=== PATIENT | male | born 1950 | race Caucasian/White ===

== ENCOUNTER 2019-11-14 12:57 | Inpatient (IN) | payer OTHER, SELFPAY ==
[2019-11-14 13:04] VITALS: BP 147/85; PULSE 63; RESP 18; TEMP 36.4; O2SAT 95; BMI 30.1
--- NOTE | 2019-11-14 13:16 | USCV_ITS ---
AnicetoLawrence cobb Age: 69 Gender: M : 1950 Exam Date: 11/14/2019 13:35 Ordering Phys: Hansa Goodrich Technologist: Marleni Duran Exam Location: [facility] [place] Indication: RED, SWOLLEN HISTORY: Lower extremity edema. Prior diagnosis of thrombis two weeks ago at [facility] PROCEDURES: Venous duplex imaging was performed in only the right lower extremity. The following venous structures were evaluated: common femoral vein, profunda vein, proximal portion of the greater saphenous vein, superficial femoral vein, and the popliteal vein. In addition, the posterior tibial and peroneal trunk were evaluated. Serial compression, augmentation maneuvers, and spectral Doppler flow evaluation were performed. FINDINGS: Acute thrombus within the CFV, Profunda, and Femoral vein. Normal popliteal vein. CONCLUSIONS There is evidence of acute right lower extremity deep venous thrombosis. Dr. Alesia Shen DO (Electronically Signed) Final Date: 14 November 2019 16:02 S
--- NOTE | 2019-11-14 13:18 | ED_ITS ---
Documented by User: RONEL Lew 11/14/19 15:11 HPI - Extremity Problem General: Chief complaint: Skin/Abscess/Foreign Body Stated complaint: R LEG SWELLING Time Seen by Provider: 11/14/19 13:05 Source: patient and family Mode of arrival: ambulatory Limitations: no limitations History of Present Illness: HPI Narrative: Patient is a very nice 69-year-old male who presents to ED today along with his for complaints of right lower extremity swelling and redness. Patient tells me he initially began noticing swelling in the extremity approximately 2 weeks ago and was seen by the [facility] and diagnosed with a DVT (US report from [facility] actually shows this was 2 months ago-not 2 weeks ago). He was placed on Eliquis at that time. Patient states dakota roximately a week later he began noticing redness and warmth to the leg. He again was seen at the [facility] on Thursday and diagnosed with cellulitis. He was given a dose of IV Rocephin and placed on oral doxycycline. Patient states since that visit leg has continued to worsen and he has noticed redness now above his knee. He has not been running fevers. He does not complain of chest pain or shortness of breath. He states his right leg is weeping fluid. MD Complaint: extremity pain and extremity swelling Onset (ago): day(s) Pain Consistency: constant Location: right and lower extremity Radiation: none Relieving factors: nothing Exacerbating factors: nothing Associated symptoms: Reports no associated symptoms; Deny chest pain or fever(s) Context: history of DVT Review of Systems Const: Denies: fever(s), chills, fatigue or malaise Eyes: Denies: change in vision, blurry vision, floaters or seeing flashes Card: Denies: chest pain, palpitations, edema, lightheadedness, syncope, pre- syncope, dyspnea on exertion or orthopnea Resp: Denies: dyspnea, productive cough, non-productive cough or chest congestion GI: Denies: nausea or vomiting : Denies: flank pain Musc: Reports: extremity pain and extremity swelling; Denies: neck pain or back pain Skin/Breast: Reports: other (redness and weeping to R LE) Neuro: Denies: numbness in extremities, weakness in extremities or sensory changes PFSH ED PFSH: Social History Smoking and tobacco status: former smoker Physical Exam Const: COMMON NORMALS: no acute distress, average body habitus, patient oriented x3, no limitations, healthy appearing, alert and well nourished ORIENTATION/CONSCIOUSNESS: Yes oriented to person, Yes oriented to place and Yes oriented to time Resp: COMMON NORMALS: normal respiratory effort and clear to auscultation bilaterally AUSCULTATION: clear to auscultation bilaterally Cardio: COMMON NORMALS: regular rate and regular rhythm RATE: regular rate RHYTHM: regular rhythm Extremity: OTHER: pt has significant erythema and pitting edema to R LE; findings are circumferential; he does have some fainter erythema just proximal to his knee that he states is new despite abx use; he has weeping of clear/yellow fluid to anterior aspect of lower leg; R foot with dusky hue appearance-he does have similar findings to L LE as well; DP/PT pulses are intact and there is no coolness to the foot Neuro: COMMON NORMALS: patient oriented x3, moves all extremities, no focal motor deficits, no sensory deficits noted and gait normal SENSORIUM/ORIENTATION: Yes alert, Yes oriented to person, Yes oriented to place and Yes oriented to time Skin: OTHER: see extremity assessment Course Vital Signs: Vital signs: Vital Signs Temperature 97.6 F 11/14/19 13:04 Pulse Rate 63 11/14/19 13:04 Respiratory Rate 18 11/14/19 13:04 Blood Pressure 147/85 11/14/19 13:04 Pulse Oximetry 95 11/14/19 13:04 MDM - Extremity (Nontraumatic) MDM Narrative: Medical decision making narrative: [facility] and has been on doxycycline for the past 48 hours and according to patient the erythema is continuing to spread proximally. His vitals and labs overall look okay but he has failed outpatient therapy. Spoke to Dr. Strickland about admitting the patient for aggressive IV antibiotics. Venous ultrasound was obtained here and does show a DVT to his right common [facility] was in same location. He has been given IV vancomycin here. Lab Data: Labs: Lab Results 11/14/19 11/14/19 11/14/19 Range/Units 13:30 13:30 13:30 WBC 5.9 (4.0-10.0) 10^3/ uL RBC 4.58 (4.1-5.3) 10^6/u L Hgb 14.8 (11.7-16.6) g/dL Hct 43.3 (42.0-52.0) % MCV 94.5 H (80-94) fL MCH 32.3 (28.0-34.0) pg MCHC 34.2 (30.0-36.0) g/dL RDW 11.9 L (12.1-15.1) % Plt Count 225 (130-400) 10^3/c mm MPV 9.1 (7.4-10.4) fL Neut % (Auto) 51.9 % Lymph % (Auto) 19.3 % Lyon % (Auto) 10.7 % Eos % (Auto) 16.0 % Baso % (Auto) 1.2 % Neut # (Auto) 3.1 (1.8-7.7) 10^3/u L Lymph # (Auto) 1.1 (0.8-4.8) 10^3/u L Lyon # (Auto) 0.6 (0.2-0.9) 10^3/u L Eos # (Auto) 0.9 H (0.0-0.8) 10^3/u L Baso # (Auto) 0.1 (0.0-0.1) 10^3/u L Nucleated RBC % (a uto) 0 % Nucleated RBCs # 0.0 /100WBC PT (10.5-13.3) SECO NDS INR (0.8-1.2) APTT (23.9-36.7) SECO NDS Sodium 136 (136-145) mmol/L Potassium 4.0 (3.5-5.1) mmol/L Chloride 97 L (98-107) mmol/L Carbon Dioxide 26 (22-29) mmol/L Anion Gap 17.0 (5-19) BUN 20 (8-23) mg/dL Creatinine 1.3 H (0.7-1.2) mg/dL GFR Calculation 54.6 L (90-130) mL/min Glucose 242 H (65-115) mg/dL Calculated Osmolal ity 287 (285-295) mOsm/k g Lactate 1.7 (0.5-2.2) mmol/L Calcium 9.4 (8.5-10.5) mg/dL Total Bilirubin 0.3 (0.15-1.2) mg/dL AST 22 (0-40) U/L ALT 17 (0-41) U/L Alkaline Phosphata se 85 (40-130) IU/L C-Reactive Protein 7.5 H (0.0-4.9) mg/L Total Protein 6.9 (6.6-8.7) g/dL Albumin 4.2 (3.5-5.2) g/dL Globulin 2.7 (1.3-4.6) g/dL 11/14/19 Range/Units 13:30 WBC (4.0-10.0) 10^3/ uL RBC (4.1-5.3) 10^6/u L Hgb (11.7-16.6) g/dL Hct (42.0-52.0) % MCV (80-94) fL MCH (28.0-34.0) pg MCHC (30.0-36.0) g/dL RDW (12.1-15.1) % Plt Count (130-400) 10^3/c mm MPV (7.4-10.4) fL Neut % (Auto) % Lymph % (Auto) % Lyon % (Auto) % Eos % (Auto) % Baso % (Auto) % Neut # (Auto) (1.8-7.7) 10^3/u L Lymph # (Auto) (0.8-4.8) 10^3/u L Lyon # (Auto) (0.2-0.9) 10^3/u L Eos # (Auto) (0.0-0.8) 10^3/u L Baso # (Auto) (0.0-0.1) 10^3/u L Nucleated RBC % (a uto) % Nucleated RBCs # /100WBC PT 14.50 H (10.5-13.3) SECO NDS INR 1.09 (0.8-1.2) APTT 28.1 (23.9-36.7) SECO NDS Sodium (136-145) mmol/L Potassium (3.5-5.1) mmol/L Chloride (98-107) mmol/L Carbon Dioxide (22-29) mmol/L Anion Gap (5-19) BUN (8-23) mg/dL Creatinine (0.7-1.2) mg/dL GFR Calculation (90-130) mL/min Glucose (65-115) mg/dL Calculated Osmolal ity (285-295) mOsm/k g Lactate (0.5-2.2) mmol/L Calcium (8.5-10.5) mg/dL Total Bilirubin (0.15-1.2) mg/dL AST (0-40) U/L ALT (0-41) U/L Alkaline Phosphata se (40-130) IU/L C-Reactive Protein (0.0-4.9) mg/L Total Protein (6.6-8.7) g/dL Albumin (3.5-5.2) g/dL Globulin (1.3-4.6) g/dL Imaging Data^: US venous R LE: My impression: Per Sandie US tech-DVT noted to right common femoral vein; arterial blood flow was noted throughout the extremity Discharge Plan Discharge Patient Disposition: Admitted As Inpatient Clinical Impression: Cellulitis of right leg without foot, Failure of outpatient treatment Deep vein thrombosis (DVT) of right lower extremity Qualifiers: Affected thrombotic vein of extremity: femoral Chronicity: acute Qualified Code(s): I82.411 - Acute embolism and thrombosis of right femoral vein Condition: Stable Sign Out Sign Out Data: Patient Sign Out occurred on 11/14/19 at 14:40. Patient's care was discussed, and care was transferred from to Alice Strickland. Coding Level of Care Code ED Parking Manager for Chg Fwd Exam Expanded Problem Focused Documented by User: Alice Strickland 11/14/19 15:02 HPI - Extremity Problem General: Chief complaint: Skin/Abscess/Foreign Body Stated complaint: R LEG SWELLING Time Seen by Provider: 11/14/19 13:05 PFSH ED PFSH: Social History Smoking and tobacco status: former smoker Course Vital Signs: Vital signs: Vital Signs Temperature 97.6 F 11/14/19 13:04 Pulse Rate 63 11/14/19 13:04 Respiratory Rate 18 11/14/19 13:04 Blood Pressure 147/85 11/14/19 13:04 Pulse Oximetry 95 11/14/19 13:04 MDM - Extremity (Nontraumatic) MDM Narrative: Medical decision making narrative: Patient was seen and examined by me. I agree with Hansa Goodrich PAs assessment and plan. The case was reviewed with Dr. Najera. She agrees to admit for IV antibiotics as the patient is possibly failed outpatient treatment. Nonetheless his symptoms are getting worse and with his much area of his leg involved he will need further inpatient care. Lab Data: Labs: Lab Results 11/14/19 11/14/19 11/14/19 Range/Units 13:30 13:30 13:30 WBC 5.9 (4.0-10.0) 10^3/ uL RBC 4.58 (4.1-5.3) 10^6/u L Hgb 14.8 (11.7-16.6) g/dL Hct 43.3 (42.0-52.0) % MCV 94.5 H (80-94) fL MCH 32.3 (28.0-34.0) pg MCHC 34.2 (30.0-36.0) g/dL RDW 11.9 L (12.1-15.1) % Plt Count 225 (130-400) 10^3/c mm MPV 9.1 (7.4-10.4) fL Neut % (Auto) 51.9 % Lymph % (Auto) 19.3 % Lyon % (Auto) 10.7 % Eos % (Auto) 16.0 % Baso % (Auto) 1.2 % Neut # (Auto) 3.1 (1.8-7.7) 10^3/u L Lymph # (Auto) 1.1 (0.8-4.8) 10^3/u L Lyon # (Auto) 0.6 (0.2-0.9) 10^3/u L Eos # (Auto) 0.9 H (0.0-0.8) 10^3/u L Baso # (Auto) 0.1 (0.0-0.1) 10^3/u L Nucleated RBC % (a uto) 0 % Nucleated RBCs # 0.0 /100WBC PT (10.5-13.3) SECO NDS INR (0.8-1.2) APTT (23.9-36.7) SECO NDS Sodium 136 (136-145) mmol/L Potassium 4.0 (3.5-5.1) mmol/L Chloride 97 L (98-107) mmol/L Carbon Dioxide 26 (22-29) mmol/L Anion Gap 17.0 (5-19) BUN 20 (8-23) mg/dL Creatinine 1.3 H (0.7-1.2) mg/dL GFR Calculation 54.6 L (90-130) mL/min Glucose 242 H (65-115) mg/dL Calculated Osmolal ity 287 (285-295) mOsm/k g Lactate 1.7 (0.5-2.2) mmol/L Calcium 9.4 (8.5-10.5) mg/dL Total Bilirubin 0.3 (0.15-1.2) mg/dL AST 22 (0-40) U/L ALT 17 (0-41) U/L Alkaline Phosphata se 85 (40-130) IU/L C-Reactive Protein 7.5 H (0.0-4.9) mg/L Total Protein 6.9 (6.6-8.7) g/dL Albumin 4.2 (3.5-5.2) g/dL Globulin 2.7 (1.3-4.6) g/dL 11/14/19 Range/Units 13:30 WBC (4.0-10.0) 10^3/ uL RBC (4.1-5.3) 10^6/u L Hgb (11.7-16.6) g/dL Hct (42.0-52.0) % MCV (80-94) fL MCH (28.0-34.0) pg MCHC (30.0-36.0) g/dL RDW (12.1-15.1) % Plt Count (130-400) 10^3/c mm MPV (7.4-10.4) fL Neut % (Auto) % Lymph % (Auto) % Lyon % (Auto) % Eos % (Auto) % Baso % (Auto) % Neut # (Auto) (1.8-7.7) 10^3/u L Lymph # (Auto) (0.8-4.8) 10^3/u L Lyon # (Auto) (0.2-0.9) 10^3/u L Eos # (Auto) (0.0-0.8) 10^3/u L Baso # (Auto) (0.0-0.1) 10^3/u L Nucleated RBC % (a uto) % Nucleated RBCs # /100WBC PT 14.50 H (10.5-13.3) SECO NDS INR 1.09 (0.8-1.2) APTT 28.1 (23.9-36.7) SECO NDS Sodium (136-145) mmol/L Potassium (3.5-5.1) mmol/L Chloride (98-107) mmol/L Carbon Dioxide (22-29) mmol/L Anion Gap (5-19) BUN (8-23) mg/dL Creatinine (0.7-1.2) mg/dL GFR Calculation (90-130) mL/min Glucose (65-115) mg/dL Calculated Osmolal ity (285-295) mOsm/k g Lactate (0.5-2.2) mmol/L Calcium (8.5-10.5) mg/dL Total Bilirubin (0.15-1.2) mg/dL AST (0-40) U/L ALT (0-41) U/L Alkaline Phosphata se (40-130) IU/L C-Reactive Protein (0.0-4.9) mg/L Total Protein (6.6-8.7) g/dL Albumin (3.5-5.2) g/dL Globulin (1.3-4.6) g/dL Discharge Plan Discharge Patient Disposition: Admitted As Inpatient Clinical Impression: Cellulitis of right leg without foot, Failure of outpatient treatment Deep vein thrombosis (DVT) of right lower extremity Qualifiers: Affected thrombotic vein of extremity: femoral Chronicity: acute Qualified Code(s): I82.411 - Acute embolism and thrombosis of right femoral vein Condition: Stable Sign Out Sign Out Data: Patient Sign Out occurred on 11/14/19 at 14:40. Patient's care was discussed, and care was transferred from to [facility] ([place], [place]). Coding Level of Care Code ED Parking Manager for Chg Fwd Exam Expanded Problem Focused
[2019-11-14 13:38] LABS: Basophils # 0.1 10^3/uL (0.0-0.1); Basophils % 1.2 %; Eosinophils # 0.9 10^3/uL (0.0-0.8); Hematocrit 43.3 % (42.0-52.0); Hemoglobin 14.8 g/dL (11.7-16.6); Lymphocytes # 1.1 10^3/uL (0.8-4.8); Lymphocytes % 19.3 %; Mean Corpuscular HGB Conc 34.2 g/dL (30.0-36.0); Mean Corpuscular Hemoglobin 32.3 pg (28.0-34.0); Mean Corpuscular Volume 94.5 fL (80-94); Mean Platelet Volume 9.1 fL (7.4-10.4); Monocytes # 0.6 10^3/uL (0.2-0.9); Monocytes % 10.7 %; Neutrophils # 3.1 10^3/uL (1.8-7.7); Neutrophils % 51.9 %; Nucleated Red Blood Cells % 0 %; Platelet Count 225 10^3/cmm (130-400); Red Blood Count 4.58 10^6/uL (4.1-5.3); Red Cell Distribution Width 11.9 % (12.1-15.1); White Blood Count 5.9 10^3/uL (4.0-10.0)
[2019-11-14 13:49] LABS: INR 1.09 (0.8-1.2)
[2019-11-14 13:50] LABS: Partial Thromboplastin Time 28.1 SECONDS (23.9-36.7)
[2019-11-14] MEDS: vancomycin 1,000 MG in sodium chloride 0.9% 250 ML 250 MG IV (13:54)
[2019-11-14 13:55] LABS: Alanine Aminotransferase 17 U/L (0-41); Albumin Level 4.2 g/dL (3.5-5.2); Alkaline Phosphatase 85 IU/L (40-130); Aspartate Amino Transferase 22 U/L (0-40); Blood Urea Nitrogen 20 mg/dL (8-23); C Reactive Protein 7.5 mg/L (0.0-4.9); Calcium 9.4 mg/dL (8.5-10.5); Carbon Dioxide 26 mmol/L (22-29); Chloride 97 mmol/L (98-107); Globulin 2.7 g/dL (1.3-4.6); Glomerular Filtration Rate 54.6 mL/min (90-130); Glucose 242 mg/dL (65-115); Osmolality Calculated 287 mOsm/kg (285-295); Sodium 136 mmol/L (136-145); Total Bilirubin 0.3 mg/dL (0.15-1.2); Total Protein 6.9 g/dL (6.6-8.7)
[2019-11-14 13:56] LABS: Lactate (Lactic Acid level) 1.7 mmol/L (0.5-2.2)
--- NOTE | 2019-11-14 15:03 | PC.NURSE ---
Patient reports his head around his hairline and a small patch on his chest have started itching in the last 5 minutes of his Vancomycin infusion. Very slight pink coloration noted, no rash or lesions noted. Doctor notified. Advised to hold zosyn infusion for a little longer.
[2019-11-14] MEDS: piperacillin-tazobactam 3.375 GM in sodium chloride 0.9% (plus) 50 ML IV ×2 (15:19→23:41)
[2019-11-14 15:22] VITALS: BP 133/77; PULSE 57; RESP 14; O2SAT 95
[2019-11-14 15:43] VITALS: BP 133/77; PULSE 63; RESP 16; TEMP 36.4; O2SAT 96
[2019-11-14 16:20] VITALS: BP 162/86; PULSE 58; RESP 16; TEMP 36.5; O2SAT 97
[2019-11-14] MEDS: sodium chloride 0.9% 1,000 ML 75 ML IV (17:21)
--- NOTE | 2019-11-14 18:05 | PM.HP ---
Providers/Chief Complaint Admitting Physician: Crista Mosquera MD Primary Care Provider: [facility] at [facility] [place] although sees Anuradha Martell locally Chief Complaint: R LEG SWELLING History of Present Illness Lawrence Moreland is a 69 year old male who presented to the emergency room with chief complaint of swelling, redness and pain in his right lower extremity. He was diagnosed with a DVT in his right lower extremity sometime ago. He has been treated with Eliquis. About 2-1/2 weeks ago, he started noticing increasing pain in his right lower extremity as well as oozing of some serous type fluid. Leg is become progressively more red. He was seen at [facility] over the weekend and received some Rocephin as well as a prescription for doxycycline. His leg is progressively worsened since that time and extended to above the knee. He has a defined area of erythema almost circumferentially with superficial ulcerations of the skin. This redness is not the same as what he had when he was found to have a DVT. He does admit to scratching the leg at times. Denies any other form of injury. Did not have any preceding recent surgery, no known history of cancer, no prior history of DVT. He does report that he had vein grafting from the right lower extremity at the time of his bypass surgery and [facility] a few years back. Denies having chronic swelling in the legs since that time. Repeat ultrasound today with duplex showed common femoral vein DVT only. It is described in report obtained from the [facility] to have been extending to the peroneal when last checked. No history of diabetes. No similar episodes of cellulitis before. In the emergency room he received a dose of vancomycin as well as some Zosyn. Given failure of outpatient treatment and progressive worsening despite treatment he is being admitted for further care and evaluation as indicated. No known history of arterial disease in the leg. Review of Systems Const: Denies: fever(s), chills or change in appetite Eyes: Denies: change in vision ENMT: Denies: throat pain, dry mouth or nasal congestion Card: Denies: chest pain or palpitations Resp: Denies: dyspnea, productive cough or non-productive cough GI: Denies: abdominal pain, nausea, vomiting, diarrhea or constipation : Denies: difficulty urinating Musc: Reports: extremity pain and extremity swelling Skin/Breast: Reports: rash, pruritus, erythema, skin tenderness, sores and other (Oozing of serous fluid) Neuro: Denies: headache(s), numbness in extremities, weakness in extremities or dizziness Psych: Denies: anxiety or depression Nuno/Lymph: Denies: easy bruising or easy bleeding Medications/Allergies Home Medications Medication Instructions Recorded Confirmed Last Taken Type apixaban [Eliquis] 5 mg PO BID 11/14/19 11/14/19 11/14/19 History ceftriaxone 1 g IV DAILY 11/14/19 11/14/19 11/13/19 History doxycycline hyclate 100 mg PO BID 11/14/19 11/14/19 11/14/19 History omeprazole 20 mg PO BID 11/14/19 11/14/19 11/14/19 History rosuvastatin [Crestor] 20 mg PO DAILY 11/14/19 11/14/19 11/13/19 History tamsulosin 0.4 mg PO DAILY 11/14/19 11/14/19 11/14/19 History Allergies Allergy/AdvReac Type Severity Reaction Status Date / Time No Known Allergies Allergy Verified 11/14/19 13:16 PFSH Acute PFSH: Medical History (Updated 11/14/19 @ 22:34 by Crista Mosquera MD) BPH (benign prostatic hyperplasia) CAD (coronary artery disease) Deep vein thrombosis (DVT) of right lower extremity GERD (gastroesophageal reflux disease) Hypercholesteremia Hypertension Surgical History History of coronary artery bypass graft 2 vessels, done at [place] Family History Other CAD (coronary artery disease) Denies family history of Clotting disorder Bleeding disorder Social History Smoking and tobacco status: former smoker Marital status: Vitals/I&O/Wt Last Vital Signs Temp 97.7 F 11/14/19 16:20 Pulse 58 L 11/14/19 16:20 Resp 16 11/14/19 16:20 BP 162/86 11/14/19 16:20 Pulse Ox 97 11/14/19 16:20 11/14/19 11/14/19 11/14/19 06:59 14:59 22:59 Intake Total 250 / 250 Balance 250 / 250 Weight last 48 hrs Weight 92.533 kg Physical Exam Const: OTHER: Alert, oriented x3, cooperative HENMT: OTHER: Normocephalic atraumatic, moist mucus membranes Eye: OTHER: Pupils equally round and reactive to light, extraocular movements intact Neck/C-Spine: OTHER: Supple, no thyromegaly or lymphadenopathy Resp: OTHER: Clear to auscultation bilaterally, no rales, rhonchi or wheezes noted, no accessory muscle use noted Cardio: OTHER: Regular rate and rhythm, no murmurs gallops or rubs. Brisk capillary refill noted at both great toes GI: OTHER: Abdomen soft, nontender, nondistended with positive bowel sounds : OTHER: Deferred Extremity: NARRATIVE EXTREMITY EXAM: Patient with marked edema in the right lower extremity compared to the left lower extremity. Area of erythema and edema is marked. All toes are puffy. Neuro: OTHER: Face symmetric, speech clear, moves all extremities Psych: OTHER: Normal affect Skin: OTHER: Chronic hyperpigmentation, stasis changes noted to the left lower extremity. Patient's right lower extremity is so erythematous difficult to discern if present there as well but suspect so. He has multiple scratches and abrasions of superficial layer of skin with oozing and crusting. Some of these are around his shoe top and others extend up the steward. No purulent drainage is noted. Some areas of the skin have very small vesicles. No areas of necrosis noted. Skin is warm to touch but not particularly raised. Data : 11/14/19 13:30 11/14/19 13:30 Micro: Microbiology 11/14/19 13:25 Blood Culture - Preliminary Blood SPECIMEN COLLECTED 11/14/19 13:30 Blood Culture - Preliminary Blood SPECIMEN COLLECTED A&P Assessment and plan (1) Cellulitis of right leg without foot: Extends from ankle to above the knee Status: Acute (2) Failure of outpatient treatment: Status: Acute (3) Deep vein thrombosis (DVT) of right lower extremity: On Eliquis, recent diagnosis Status: Acute Qualifiers: Affected thrombotic vein of extremity: femoral Chronicity: acute Qualified Code(s): I82.411 - Acute embolism and thrombosis of right femoral vein (4) Hyperglycemia: Without a known diagnosis of diabetes Status: Acute (5) CAD (coronary artery disease): History of bypass surgery several years ago Status: Acute Qualifiers: Coronary Disease-Associated Artery/Lesion type: bypass graft [place] vs. transplanted heart: [place] heart Associated angina: without angina Qualified Code(s): I25.810 - Atherosclerosis of coronary artery bypass graft(s) without angina pectoris (6) Hypercholesteremia: Chronically on statin Status: Acute (7) Hypertension: Does not appear to be on any treatment presently Status: Acute Qualifiers: Hypertension type: essential hypertension Qualified Code(s): I10 - Essential (primary) hypertension (8) BPH (benign prostatic hyperplasia): Chronically on Flomax Status: Acute Qualifiers: Lower urinary tract symptom presence: symptoms absent Qualified Code(s): N40.0 - Benign prostatic hyperplasia without lower urinary tract symptoms (9) GERD (gastroesophageal reflux disease): Status: Acute Qualifiers: Esophagitis presence: esophagitis presence not specified Qualified Code(s): K21.9 - Gastro-esophageal reflux disease without esophagitis Additional A&P Information Acute kidney injury versus chronic kidney disease Inpatient admission Continue vancomycin and Zosyn Check hemoglobin A1c Keep lower extremity elevated 1 dose of IV diuresis If does not have gross improvement overnight will consider arterial Dopplers tomorrow Echocardiogram limited to check ejection fraction Check hemoglobin A1c Sliding scale insulin For somebody with history of bypass surgery, not on much in the way of chronic home medications. Will need to [facility] and clarify a bit further along with discussing with him more in-depth. In their interim we will continue statin therapy Continue Flomax Continue chronic PPI Allison provides DVT treatment and prophylaxis Supportive care otherwise Plans discussed with patient and he was given an opportunity to ask questions Full code Attestations Medical Necessity Statement*: Anticipate stay greater than 2 midnights in patient failing outpatient attempts at management of cellulitis. Has significant hyperglycemia without known history of diabetes and other comorbid diagnoses as noted. Plans as indicated. Coding Level of Care Code Acute Dry Cans Operator for Akhil Rush Diagnoses Cellulitis of right leg without foot L03.115 Failure of outpatient treatment Z78.9 Deep vein thrombosis (DVT) of right lower extremity I82.411 Affected thrombotic vein of extremity: femoral Chronicity: acute Hyperglycemia R73.9 CAD (coronary artery disease) I25.810 Coronary Disease-Associated Artery/Lesion type: bypass graft [place] vs. transplanted heart: [place] heart Associated angina: without angina Hypercholesteremia E78.00 Hypertension I10 Hypertension type: essential hypertension BPH (benign prostatic hyperplasia) N40.0 Lower urinary tract symptom presence: symptoms absent GERD (gastroesophageal reflux disease) K21.9 Esophagitis presence: esophagitis presence not specified
[2019-11-14] MEDS: calcium carbonate 500 mg Chew Tablet 1000 MG PO ×2 (18:37→23:43)
[2019-11-14 19:18] VITALS: BP 146/76; PULSE 61; RESP 18; TEMP 36.7; O2SAT 98
[2019-11-14] MEDS: apixaban 5 mg Tablet PO (21:01)
[2019-11-15] VITALS: BP 135/76; PULSE 71; RESP 18; TEMP 36.8; O2SAT 93
[2019-11-15 04:00] VITALS: BP 126/63; PULSE 72; RESP 18; TEMP 36.7; O2SAT 97
[2019-11-15 06:00] LABS: Basophils # 0.1 10^3/uL (0.0-0.1); Eosinophils % 15.8 %; Hematocrit 41.5 % (42.0-52.0); Lymphocytes # 1.1 10^3/uL (0.8-4.8); Lymphocytes % 18.1 %; Mean Corpuscular HGB Conc 33.7 g/dL (30.0-36.0); Mean Corpuscular Hemoglobin 31.7 pg (28.0-34.0); Mean Corpuscular Volume 93.9 fL (80-94); Mean Platelet Volume 9.5 fL (7.4-10.4); Monocytes # 0.7 10^3/uL (0.2-0.9); Neutrophils # 3.2 10^3/uL (1.8-7.7); Neutrophils % 52.9 %; Nucleated Red Blood Cells % 0 %; Platelet Count 200 10^3/cmm (130-400); Red Blood Count 4.42 10^6/uL (4.1-5.3); Red Cell Distribution Width 11.7 % (12.1-15.1); White Blood Count 6.1 10^3/uL (4.0-10.0)
[2019-11-15] MEDS: FUROsemide 10 mg/mL SDV 4mL 40 MG IVP (06:17)
[2019-11-15] MEDS: sodium chloride 0.9% 1,000 ML 75 ML IV ×2 (06:17→19:09)
[2019-11-15 06:23] LABS: Phosphorus 2.8 mg/dL (2.5-4.5)
[2019-11-15 06:24] LABS: NT Pro B Type Natriuretic Pept 533 pg/mL (0-125)
[2019-11-15 06:27] LABS: Estmated Average Glucose 140; Hemoglobin A1C 6.5 % (4.0-6.0)
[2019-11-15 06:29] LABS: Anion Gap 12.9 (5-19); Blood Urea Nitrogen 19 mg/dL (8-23); Calcium 9.7 mg/dL (8.5-10.5); Carbon Dioxide 27 mmol/L (22-29); Chloride 103 mmol/L (98-107); Glomerular Filtration Rate 73.9 mL/min (90-130); Glucose 105 mg/dL (65-115); Osmolality Calculated 285 mOsm/kg (285-295); Potassium 3.9 mmol/L (3.5-5.1); Sodium 139 mmol/L (136-145)
[2019-11-15 06:32] LABS: Glucose Point of Care 102 mg/dL (70-110)
[2019-11-15 06:39] LABS: Add Urine Microscopic? NO
[2019-11-15 07:06] LABS: Bilirubin Urine Neg (NEGATIVE); Blood Urine Neg (Negative); Glucose Urine UA Norm (Normal); Ketones Urine Negative (Negative); Leukocyte Esterase Urine Negative (Negative); Nitrate Urine Negative (Negative); Protein Urine Neg (Negative); Specific Gravity, Urine 1.015 (1.005-1.030); Urine Appearance Clear (CLEAR); Urine Color Yellow (Yellow); Urobilinogen Urine Norm (Negative); pH Urine 7 (5-7)
[2019-11-15 08:00] VITALS: BP 110/64; PULSE 70; RESP 19; TEMP 36.8; O2SAT 96
[2019-11-15] MEDS: tamsulosin 0.4 mg Capsule PO (08:18)
[2019-11-15] MEDS: atorvastatin 40 mg Tablet 80 MG PO (08:18)
[2019-11-15] MEDS: pantoprazole DR 40 mg Tablet PO ×2 (08:18→18:14)
[2019-11-15] MEDS: lactobacillus 1 Tablet 1 TAB PO ×2 (08:19→18:14)
[2019-11-15] MEDS: apixaban 5 mg Tablet PO ×2 (08:19→18:14)
--- NOTE | 2019-11-15 09:16 | PM.PN ---
Subjective Subjective: Interval history: Patient with less oozing today. No real change in area of erythema. When he is lying down in bed he feels okay but when walking around describes pain up his tibia. Further discussion reveals that his swelling has really just 2 weeks ago when it started. He relays this because that is when he started not being able to wear his boot. He does report that he has a brother who with a history of a blood clot. Reviewed with him the finding of elevated hemoglobin A1c likely contributing factor to development of cellulitis. Medications: Reviewed: Yes Medication Review Details: Vancomycin and Zosyn day 2 Vitals/I&O/Wt Last Vital Signs Temp 98.0 F 11/15/19 04:00 Pulse 72 11/15/19 04:00 Resp 18 11/15/19 04:00 BP 126/63 11/15/19 04:00 Pulse Ox 97 11/15/19 04:00 11/14/19 11/15/19 11/15/19 22:59 06:59 14:59 Intake Total 490 / 490 970 / 1460 Output Total 120 / 120 400 / 520 Balance 370 / 370 570 / 940 Weight last 48 hrs Weight 93.695 kg Weight 92.533 kg Physical Exam Const: OTHER: Alert, oriented x3, cooperative HENMT: OTHER: Normocephalic atraumatic, moist mucus membranes Eye: OTHER: Pupils equally round and reactive to light, extraocular movements intact Neck/C-Spine: OTHER: Supple, no thyromegaly or lymphadenopathy Resp: OTHER: Clear to auscultation bilaterally, no rales, rhonchi or wheezes noted, no accessory muscle use noted Cardio: OTHER: Regular rate and rhythm, no murmurs gallops or rubs. Brisk capillary refill noted at both great toes GI: OTHER: Abdomen soft, nontender, nondistended with positive bowel sounds Extremity: NARRATIVE EXTREMITY EXAM: Patient with marked edema in the right lower extremity compared to the left lower extremity. Area of erythema and edema is marked. All toes are puffy. Neuro: OTHER: Face symmetric, speech clear, moves all extremities Psych: OTHER: Normal affect Skin: OTHER: Chronic hyperpigmentation, stasis changes noted to the left lower extremity. Patient's right lower extremity is so erythematous difficult to discern if present there as well but suspect so. He has multiple scratches and abrasions of superficial layer of skin with oozing and crusting. Some of these are around his shoe top and others extend up the steward. No purulent drainage is noted. Some areas of the skin have very small vesicles. No areas of necrosis noted. Skin is warm to touch but not particularly raised. Some satellite lesions proximally above knee. Toes not with obvious tinea pedis. Data : 11/15/19 04:33 11/15/19 04:33 Micro: Microbiology 11/14/19 13:25 Blood Culture - Preliminary Blood SPECIMEN COLLECTED 11/14/19 13:30 Blood Culture - Preliminary Blood SPECIMEN COLLECTED A&P Assessment and plan (1) Cellulitis of right leg without foot: Extends from ankle to above the knee, dryer today but erythema about the same Status: Acute (2) Failure of outpatient treatment: Status: Acute (3) Deep vein thrombosis (DVT) of right lower extremity: On Eliquis, recent diagnosis Status: Acute Qualifiers: Affected thrombotic vein of extremity: femoral Chronicity: acute Qualified Code(s): I82.411 - Acute embolism and thrombosis of right femoral vein (4) Hyperglycemia: Without a known diagnosis of diabetes >> A1c 6.5 consistent with at least glucose intolerance Status: Acute (5) CAD (coronary artery disease): History of bypass surgery two years ago Status: Acute Qualifiers: Associated angina: without angina Coronary Disease-Associated Artery/Lesion type: bypass graft [place] vs. transplanted heart: [place] heart Qualified Code(s): I25.810 - Atherosclerosis of coronary artery bypass graft(s) without angina pectoris (6) Hypercholesteremia: Chronically on statin Status: Acute (7) Hypertension: Does not appear to be on any treatment presently at home Status: Acute Qualifiers: Hypertension type: essential hypertension Qualified Code(s): I10 - Essential (primary) hypertension (8) BPH (benign prostatic hyperplasia): Chronically on Flomax Status: Acute Qualifiers: Lower urinary tract symptom presence: symptoms absent Qualified Code(s): N40.0 - Benign prostatic hyperplasia without lower urinary tract symptoms (9) GERD (gastroesophageal reflux disease): On PPI at home Status: Acute Qualifiers: Esophagitis presence: esophagitis presence not specified Qualified Code(s): K21.9 - Gastro-esophageal reflux disease without esophagitis Additional A&P Information Acute kidney injury improved with fluids Continue vancomycin and Zosyn Add lotrimin Keep lower extremity elevated 1 dose of IV diuresis given today with good urine output Encourage patient to keep his leg elevated Check arterial doppler Sliding scale insulin Diabetic diet education Anticipate initiation of oral hypoglycemic agents or even simply initiation of metformin prior to discharge depending on what his blood sugars do while here Need to clarify a bit further with [facility] chronic medications and reasons why he is not on beta-blockade and such. I suspect it has to do with intermittent bradycardia and hypotension. He is also not chronically on aspirin therapy. Continue statin therapy Continue Flomax Continue chronic PPI Eliquis provides DVT treatment Supportive care otherwise Plans discussed with patient and he was given an opportunity to ask questions Full code Attestations Medical Necessity Statement*: Requires ongoing inpatient stay for continued antibiotic therapy and other plans as noted above. Coding Level of Care Code Acute Stenocaptioner for Akhil Rush Diagnoses Cellulitis of right leg without foot L03.115 Failure of outpatient treatment Z78.9 Deep vein thrombosis (DVT) of right lower extremity I82.411 Affected thrombotic vein of extremity: femoral Chronicity: acute Hyperglycemia R73.9 CAD (coronary artery disease) I25.810 Associated angina: without angina Coronary Disease-Associated Artery/Lesion type: bypass graft [place] vs. transplanted heart: [place] heart Hypercholesteremia E78.00 Hypertension I10 Hypertension type: essential hypertension BPH (benign prostatic hyperplasia) N40.0 Lower urinary tract symptom presence: symptoms absent GERD (gastroesophageal reflux disease) K21.9 Esophagitis presence: esophagitis presence not specified
[2019-11-15 11:02] LABS: Glucose Point of Care 161 mg/dL (70-110)
--- NOTE | 2019-11-15 11:13 | PC.CHAP ---
Pastoral Care Encounter/Spiritual Assessment Type of Contact [] Declined produce associate visit [] Patient/Family/Request visit [] Outpatient visit [] Follow-up visit [] Physician referral [] Code/Alert [x] Routine visit [] Staff referral [] Actively dying [] Patient sleeping [] Family support [] [] Out of room [] Palliative care [] [x] Receiving care in room [] Pre-surgical visit [] Trauma [] Long length of stay [] ICU visit [] Other: Relational/Emotional Strength [x] Patient feels connected with others/family/visitors/staff [] Distress [] Loneliness/isolation [] Abandonment Spirituality of Patient [x] Person of Delmy [] Attends Scientology of their Delmy [x] Believes in Prayer [] Reads Bible or Voodoo materials [] There are Spiritual issues to be addressed Application Defense Manager Interventions [x] Prayer [x] Active listening [x] Non-anxious presence [x] Spiritual/emotional support [] Crisis/trauma care [x] Spiritual counseling [] Bereavement support [] Provided bereavement packet [] Provided Bible/devotional materials [] Provided toy/stuffed animal, coloring book to patient or family member [] Provided Communion [] Anointing/[place] [] Salvation [x] Completed spiritual assessment [] Other: Impact on Illness or Injury [] Angry [] Fearful [x] Anxious [] Often cries [] Exhaustion [] Unable to work [] Unable to attend oriental orthodox [] Unable to walk/stand [] Unable to read [] Unable to drive [] Unable to eat/drink [] Unable to sleep [] Unable to be with family [] Patient intubated [] Other: Summary Swelling in right ankle and leg, swelling is going down, h`e is feeling better about his progress, good attitude, feels good, in for 2 more days, before he can go home. Time spent with patient 10 mins
[2019-11-15 11:30] VITALS: BP 126/71; PULSE 63; RESP 22; TEMP 36.6; O2SAT 96
[2019-11-15] MEDS: piperacillin-tazobactam 3.375 GM in sodium chloride 0.9% (plus) 50 ML IV ×2 (12:14→19:14)
--- NOTE | 2019-11-15 15:03 | USCV_ITS ---
Lawrence Moreland Age: 69 Gender: M : 1950 Exam Date: 11/15/2019 16:18 Ordering Phys: Crista Mosquera MD Technologist: Marleni Duran Exam Location: [facility] – [place] Indication: EDEMA Risk Factors: Previous Vascular Surgery: RIGHT LEFT BP: 135.0 / 71.00 BP: 125.0/ 75.00 0 0 Waveform Velocity (cm/s) Velocity (cm/s) Waveform Triphasic 112.0 Iliac Prox Triphasic 101.3 Iliac Mid Triphasic 141.3 Iliac Distal Triphasic 86.8 REFERRAL RN Triphasic 95.4 SFA Prox Triphasic 113.1 SFA Mid Triphasic 103.9 SFA Dist Triphasic 92.0 POP Triphasic 71.0 SCHOOL LIBRARY MEDIA PROGRAM DIRECTOR Triphasic 66.8 DPA 1.5 PHIL FINDINGS Supernormal resting PHIL on the right side CONCLUSIONS No significant arterial obstruction on the right side Dr Juan Franklin MD FACC (Electronically Signed) Final Date: 15 November 2019 18:40 S
[2019-11-15 15:10] VITALS: BP 141/74; PULSE 64; RESP 20; TEMP 36.6; O2SAT 96
[2019-11-15 16:14] LABS: Glucose Point of Care 134 mg/dL (70-110)
[2019-11-15] MEDS: calcium carbonate 500 mg Chew Tablet 1000 MG PO (18:14)
[2019-11-15] MEDS: clotrimazole 1% cream 30 gm 1 APPLIC TOPICAL (18:15)
[2019-11-15 19:59] VITALS: BP 125/72; PULSE 63; RESP 18; TEMP 36.8; O2SAT 97
[2019-11-15 20:17] LABS: Glucose Point of Care 173 mg/dL (70-110)
[2019-11-15] MEDS: diphenhydrAMINE 25 mg Capsule PO (21:27)
--- NOTE | 2019-11-15 22:29 | USCV_ITS ---
Lawrence Moreland Age: 69 Gender: M : 1950 Exam Date: 11/15/2019 06:50 Ordering Phys: Crista Mosquera MD Technologist: Kavitha Salguero Exam Location: [facility] [place] Indication: CHF HISTORY OF 2 VESSEL CABG 2 YEARS AGO BP: / HR: 60 Rhythm: Sinus Technical Quality: Suboptimal MEASUREMENTS (Male / Female) Normal Values 2D ECHO LV Diastolic Diameter PLAX 4.3 cm 4.2 - 5.9 / 3.9 - 5.3 cm LV Systolic Diameter PLAX 3.2 cm LV Chamber Size 2.9 cm IVS Diastolic Thickness 1.7 cm 0.6 - 1.0 / 0.6 - 0.9 cm IVS Systolic Thickness 1.7 cm LVPW Diastolic Thickness 1.2 cm 0.6 - 1.0 / 0.6 - 0.9 cm LVPW Systolic Thickness 1.7 cm RV Chamber Size 3.4 cm LVOT Diameter 2.0 cm LV Ejection Fraction 2D Teich 50.1 % LV Ejection Fraction MOD 2C 60.6 % LV Ejection Fraction 2C AL 61.2 % LA Diameter 4.5 cm LA Width 3.2 cm LA Height 4.3 cm RA Width 3.0 cm RA Height 3.5 cm Aorta at Sinotubular Diameter 2.9 cm M-MODE LV Diastolic Diameter MM 5.1 cm 4.2 - 5.9 / 3.9 - 5.3 cm LV Systolic Diameter MM 4.0 cm LV Ejection Fraction MM Teich 44.5 % IVS Diastolic Thickness MM 1.0 cm 0.6 - 1.0 / 0.6 - 0.9 cm IVS Systolic Thickness MM 1.6 cm LVPW Diastolic Thickness MM 1.4 cm 0.6 - 1.0 / 0.6 - 0.9 cm LVPW Systolic Thickness MM 1.4 cm RV Diastolic Diameter MM 0.9 cm Aortic Annulus Diameter 3.1 cm LA Ao Ratio MM 1.4 MV E Point Septal Separation 1.0 cm FINDINGS Left Ventricle This is a limited study to include 2-dimensional views only. No M-mode or Doppler examination done.normal left ventricular cavity size. Normal left ventricular wall thickness. Normal left ventricular systolic function. There may be slight hypokinesis of the mid anterior wall in only 1 view the parasternal long axis view. This is not reproduced in other views. The overall ejection fraction is within normal limits and is approximately 55 to 60%. Right Ventricle Normal right ventricular size and systolic function. Right Atrium The right atrium is normal in size. Left Atrium Mildly increased left atrial size. Mitral Valve Structurally normal mitral valve. Aortic Valve Structurally normal trileaflet aortic valve. Tricuspid Valve Structurally normal tricuspid valve. Pulmonic Valve Pulmonic valve not well visualized. Pericardium Normal pericardium without effusion. Aorta Normal ascending aorta dimension. CONCLUSIONS This is a limited study to include 2-dimensional views only. No M-mode or Doppler examination done.normal left ventricular cavity size. Normal left ventricular wall thickness. Normal left ventricular systolic function. There may be slight hypokinesis of the mid anterior wall in only 1 view the parasternal long axis view. This is not reproduced in other views. The overall ejection fraction is within normal limits and is approximately 55 to 60%. Mildly increased left atrial size. There are no prior echocardiogram studies to compare. Dr. Ignacio Woods MD (Electronically Signed) Final Date: 15 November 2019 08:31 S
[2019-11-16] VITALS: BP 125/78; PULSE 64; RESP 18; TEMP 36.7; O2SAT 95
[2019-11-16] MEDS: piperacillin-tazobactam 3.375 GM in sodium chloride 0.9% (plus) 50 ML IV ×3 (03:29→19:13)
[2019-11-16 04:00] VITALS: BP 117/67; PULSE 59; RESP 18; TEMP 36.7; O2SAT 95
[2019-11-16] MEDS: FUROsemide 10 mg/mL SDV 4mL 40 MG IVP (05:17)
[2019-11-16 05:29] LABS: C Reactive Protein 7.7 mg/L (0.0-4.9)
[2019-11-16 06:26] LABS: Glucose Point of Care 110 mg/dL (70-110)
[2019-11-16 07:24] VITALS: BP 127/73; RESP 18; TEMP 36.7; O2SAT 94
[2019-11-16] MEDS: sodium chloride 0.9% 1,000 ML 75 ML IV ×2 (08:17→21:35)
[2019-11-16] MEDS: lactobacillus 1 Tablet 1 TAB PO ×2 (08:20→18:21)
[2019-11-16] MEDS: apixaban 5 mg Tablet PO ×2 (08:20→18:21)
[2019-11-16] MEDS: atorvastatin 40 mg Tablet 80 MG PO (08:22)
[2019-11-16] MEDS: clotrimazole 1% cream 30 gm 1 APPLIC TOPICAL ×2 (08:22→18:22)
[2019-11-16] MEDS: tamsulosin 0.4 mg Capsule PO (08:22)
[2019-11-16] MEDS: pantoprazole DR 40 mg Tablet PO ×2 (08:22→18:20)
[2019-11-16 10:48] LABS: Glucose Point of Care 214 mg/dL (70-110)
[2019-11-16 11:18] VITALS: BP 142/82; PULSE 66; RESP 18; TEMP 36.5; O2SAT 96
[2019-11-16 15:46] VITALS: BP 135/78; PULSE 60; RESP 16; TEMP 36.8; O2SAT 97
[2019-11-16] MEDS: calcium carbonate 500 mg Chew Tablet 1000 MG PO (15:58)
[2019-11-16 16:35] LABS: Glucose Point of Care 129 mg/dL (70-110)
[2019-11-16 17:55] LABS: Vancomycin Trough 12.4 ug/mL (10-15)
--- NOTE | 2019-11-16 17:55 | PM.PN ---
Subjective Subjective: Interval history: Less edema today per the patient but having increased pain around the scratch palumbo above his ankle. Redness is actually improved some more proximally above the knee. Medications: Reviewed: Yes Medication Review Details: Vancomycin and Zosyn day 3 Vitals/I&O/Wt Last Vital Signs Temp 98.2 F 11/16/19 15:46 Pulse 60 11/16/19 15:46 Resp 16 11/16/19 15:46 BP 135/78 11/16/19 15:46 Pulse Ox 97 11/16/19 15:46 11/16/19 11/16/19 11/16/19 06:59 14:59 22:59 Intake Total 420 / 2645 1994 Output Total 1100 / 2475 1150 / 1150 Balance -680 / 170 845 / 845 Weight last 48 hrs Weight 94.489 kg Weight 93.695 kg Physical Exam Const: OTHER: Alert, oriented x3, cooperative Eye: OTHER: Extraocular movements intact Neck/C-Spine: OTHER: Supple Resp: OTHER: Clear to auscultation bilaterally Cardio: OTHER: Regular GI: OTHER: Abdomen soft : OTHER: Deferred Extremity: NARRATIVE EXTREMITY EXAM: Right lower extremity with some decreased edema proximally although ankle remains quite swollen. Has a bit more range of motion of the ankle however. Neuro: OTHER: Face symmetric, speech clear, moves all extremities Psych: OTHER: Normal affect Skin: OTHER: Imroved somewhat above the knee extending to below the tibial plateau. Some of the more distal erythema has become a bit darker particularly around the ankle. No oozing. Scratches are starting to heal. There is warmth at the distal leg/calf laterally today but the rest of the leg is less warm to touch. Data : 11/15/19 04:33 11/15/19 04:33 Micro: Microbiology 11/14/19 13:30 Blood Culture - Preliminary Blood NEGATIVE TO DATE 11/14/19 13:25 Blood Culture - Preliminary Blood NEGATIVE TO DATE A&P Assessment and plan (1) Cellulitis of right leg without foot: Extends from ankle to above the knee, slowly improving. Status: Acute (2) Lymphedema of right lower extremity: I suspect that this is probably what initially started happening with the swelling related to the venous thromboembolism creating a situation in which the cellulitis could develop Status: Acute (3) Failure of outpatient treatment: Status: Acute (4) Deep vein thrombosis (DVT) of right lower extremity: On Eliquis, recent diagnosis. Further review of records from the [place] shows that the DVT extended from the common femoral vein to the peroneal vein initially. Study here includes knee common femoral vein right, femoral vein and profunda, indicating improvement though not resolved. Status: Acute Qualifiers: Affected thrombotic vein of extremity: femoral Chronicity: acute Qualified Code(s): I82.411 - Acute embolism and thrombosis of right femoral vein (5) Hyperglycemia: Without a known diagnosis of diabetes >> A1c 6.5 consistent with at least glucose intolerance Status: Acute (6) CAD (coronary artery disease): History of bypass surgery two years ago Status: Acute Qualifiers: Coronary Disease-Associated Artery/Lesion type: bypass graft [place] vs. transplanted heart: [place] heart Associated angina: without angina Qualified Code(s): I25.810 - Atherosclerosis of coronary artery bypass graft(s) without angina pectoris (7) Hypercholesteremia: Chronically on statin Status: Acute (8) Hypertension: Does not appear to be on any treatment presently at home Status: Acute Qualifiers: Hypertension type: essential hypertension Qualified Code(s): I10 - Essential (primary) hypertension (9) BPH (benign prostatic hyperplasia): Chronically on Flomax Status: Acute Qualifiers: Lower urinary tract symptom presence: symptoms absent Qualified Code(s): N40.0 - Benign prostatic hyperplasia without lower urinary tract symptoms (10) GERD (gastroesophageal reflux disease): On PPI at home Status: Acute Qualifiers: Esophagitis presence: esophagitis presence not specified Qualified Code(s): K21.9 - Gastro-esophageal reflux disease without esophagitis Additional A&P Information Acute kidney injury resolved Continue vancomycin and Zosyn On lotrimin/steroid cream And another day or so we will see if we can get REBEKA hose or wrap the leg Keep lower extremity elevated Monitor ankle closely for any areas of fluctuance Status post 2 doses of Lasix, will hold Recheck renal function in the morning Sliding scale insulin Diabetic diet education -asked his nurse to get him some reading information on this Will start him on some metformin Not on aspirin or beta-blockade chronically but need to consider initiation Continue statin therapy Continue Flomax Continue chronic PPI Eliquis provides DVT treatment Supportive care otherwise Plans discussed with patient and he was given an opportunity to ask questions Full code Attestations Medical Necessity Statement*: Requires ongoing inpatient stay for continued management as noted above. Still on IV antibiotics Coding Level of Care Code Acute Pack Worker Supervisor for Chg Fwd Diagnoses Cellulitis of right leg without foot L03.115 Lymphedema of right lower extremity I89.0 Failure of outpatient treatment Z78.9 Deep vein thrombosis (DVT) of right lower extremity I82.411 Affected thrombotic vein of extremity: femoral Chronicity: acute Hyperglycemia R73.9 CAD (coronary artery disease) I25.810 Coronary Disease-Associated Artery/Lesion type: bypass graft [place] vs. transplanted heart: [place] heart Associated angina: without angina Hypercholesteremia E78.00 Hypertension I10 Hypertension type: essential hypertension BPH (benign prostatic hyperplasia) N40.0 Lower urinary tract symptom presence: symptoms absent GERD (gastroesophageal reflux disease) K21.9 Esophagitis presence: esophagitis presence not specified
[2019-11-16] MEDS: fluconazole 100 mg Tablet 150 MG PO (18:21)
[2019-11-16] MEDS: triamcinolone 0.1% cream 15 gm 1 APPLIC TOPICAL (19:05)
--- NOTE | 2019-11-16 19:17 | PC.NURSE ---
Meds administered for nurse.
[2019-11-16 20:41] VITALS: BP 145/76; PULSE 65; RESP 16; TEMP 36.8; O2SAT 95
[2019-11-16 21:06] LABS: Glucose Point of Care 194 mg/dL (70-110)
[2019-11-16] MEDS: diphenhydrAMINE 25 mg Capsule PO (21:34)
[2019-11-17 00:23] VITALS: BP 130/59; PULSE 58; RESP 18; TEMP 36.8; O2SAT 95
[2019-11-17] MEDS: piperacillin-tazobactam 3.375 GM in sodium chloride 0.9% (plus) 50 ML IV ×3 (03:23→19:28)
[2019-11-17 04:11] VITALS: BP 153/75; PULSE 70; RESP 20; TEMP 36.7; O2SAT 94
--- NOTE | 2019-11-17 05:54 | PC.NURSE ---
New Diagnosis Diabetic Teaching done. Handouts printed and explained to patient and put in folder with patients belongings to send home with patient. All questions answered.
[2019-11-17] MEDS: metformin 500 mg Tablet PO (06:14)
[2019-11-17 06:22] LABS: Glucose Point of Care 103 mg/dL (70-110)
[2019-11-17 08:00] VITALS: BP 148/84; PULSE 66; RESP 16; TEMP 36.9; O2SAT 96
[2019-11-17 08:18] LABS: Anion Gap 14.1 (5-19); Blood Urea Nitrogen 15 mg/dL (8-23); Carbon Dioxide 25 mmol/L (22-29); Chloride 106 mmol/L (98-107); Glomerular Filtration Rate 59.9 mL/min (90-130); Glucose 113 mg/dL (65-115); Osmolality Calculated 289 mOsm/kg (285-295); Potassium 4.1 mmol/L (3.5-5.1); Sodium 141 mmol/L (136-145)
[2019-11-17] MEDS: pantoprazole DR 40 mg Tablet PO ×2 (08:52→17:12)
[2019-11-17] MEDS: tamsulosin 0.4 mg Capsule PO (08:52)
[2019-11-17] MEDS: apixaban 5 mg Tablet PO ×2 (08:52→17:13)
[2019-11-17] MEDS: lactobacillus 1 Tablet 1 TAB PO ×2 (08:52→17:12)
[2019-11-17] MEDS: atorvastatin 40 mg Tablet 80 MG PO (08:52)
[2019-11-17] MEDS: triamcinolone 0.1% cream 15 gm 1 APPLIC TOPICAL ×2 (08:53→17:13)
[2019-11-17] MEDS: clotrimazole 1% cream 30 gm 1 APPLIC TOPICAL ×2 (08:54→17:14)
[2019-11-17] MEDS: sodium chloride 0.9% 1,000 ML 75 ML IV (11:58)
[2019-11-17 12:00] VITALS: BP 150/69; PULSE 60; RESP 16; TEMP 36.4; O2SAT 96
[2019-11-17 12:12] LABS: Glucose Point of Care 140 mg/dL (70-110)
--- NOTE | 2019-11-17 13:25 | P.PN_ITS ---
Subjective Subjective: Interval history: Leg is feeling better today. Has increased range of motion at the ankle and was able to walk today for the first time without significant pain. Erythema has also improved since yesterday. Medications: Reviewed: Yes Medication Review Details: Vancomycin and Zosyn day 4 Vitals/I&O/Wt Last Vital Signs Temp 97.6 F 11/17/19 12:00 Pulse 60 11/17/19 12:00 Resp 16 11/17/19 12:00 BP 150/69 11/17/19 12:00 Pulse Ox 96 11/17/19 12:00 11/16/19 11/17/19 11/17/19 22:59 06:59 14:59 Intake Total 1777.5 / 3772.5 50 / 3822.5 1290 / 1290 Output Total 500 / 1650 550 / 2200 1000 / 1000 Balance 1277.5 / 2122.5 -500 / 1622.5 290 / 290 Weight last 48 hrs Weight 94.489 kg Physical Exam Const: OTHER: Alert, oriented x3, cooperative Eye: OTHER: Extraocular movements intact Neck/C-Spine: OTHER: Supple Resp: OTHER: Clear to auscultation bilaterally Cardio: OTHER: Regular GI: OTHER: Abdomen soft Extremity: NARRATIVE EXTREMITY EXAM: Swelling is down again a little bit more. Has increased range of motion a little bit more as well at the right ankle. Neuro: OTHER: Face symmetric, speech clear, moves all extremities Psych: OTHER: Normal affect Skin: OTHER: Patient with some clearing of the erythema to the right lateral knee today since yesterday. Does have satellite lesions still proximally. Erythema is lessened down the calf but is still pretty diffuse from tibial plateau to the ankle. There is no warmth today. Skin abrasions are still dry except for one on the medial ankle below the medial malleolus. Serous drainage only. There is some desquamation of skin around both malleoli. Slight bruising laterally at the right ankle. But area is not fluctuant. Data : 11/15/19 04:33 11/17/19 07:50 A&P Assessment and plan (1) Cellulitis of right leg without foot: Extends from ankle to above the knee, slowly improving. I am pretty sure that this is probably several different processes going on. First of which is lymphedema from DVT. On top of this he developed secondary infection from his boot on the portions of the right lower extremity wear the boot was touching the skin. I think on top of this he developed a fungal infection in the setting of glucose intolerance and likely new onset or at least prediabetes. Status: Acute (2) Lymphedema of right lower extremity: I suspect that this is probably what initially started happening with the swelling related to the venous thromboembolism creating a situation in which the cellulitis could develop Status: Acute (3) Failure of outpatient treatment: Status: Acute (4) Deep vein thrombosis (DVT) of right lower extremity: On Eliquis, recent diagnosis which from description had been a few weeks ago but on review of limited available records, looks like it was diagnosed towards the end of August. Further review of records from the [place] shows that the DVT extended from the common femoral vein to the peroneal vein initially. Study here includes the common femoral vein right, femoral vein and profunda, indicating improvement though not resolved. Patient relayed today that with all of the rain we have been having lately he had not been able to get outside. He was sitting down a bit. I am not sure if that is what precipitated the recent changes. He had no surgery prior to the onset of the DVT though does describe a day in which she was doing a lot of walking after which she had pain in the r ight leg. No history of cancer. Does not currently smoke. Status: Acute Qualifiers: Affected thrombotic vein of extremity: femoral Chronicity: acute Qualified Code(s): I82.411 - Acute embolism and thrombosis of right femoral vein (5) Hyperglycemia: Without a known diagnosis of diabetes >> A1c 6.5 consistent with at least glucose intolerance and prediabetes Status: Acute (6) CAD (coronary artery disease): History of bypass surgery two years ago Status: Acute Qualifiers: Coronary Disease-Associated Artery/Lesion type: bypass graft [place] vs. transplanted heart: [place] heart Associated angina: without angina Qualified Code(s): I25.810 - Atherosclerosis of coronary artery bypass graft(s) without angina pectoris (7) Hypercholesteremia: Chronically on statin Status: Acute (8) Hypertension: Does not appear to be on any treatment presently at home Status: Acute Qualifiers: Hypertension type: essential hypertension Qualified Code(s): I10 - Essential (primary) hypertension (9) BPH (benign prostatic hyperplasia): Chronically on Flomax Status: Acute Qualifiers: Lower urinary tract symptom presence: symptoms absent Qualified Code(s): N40.0 - Benign prostatic hyperplasia without lower urinary tract symptoms (10) GERD (gastroesophageal reflux disease): On PPI at home Status: Acute Qualifiers: Esophagitis presence: esophagitis presence not specified Qualified Code(s): K21.9 - Gastro-esophageal reflux disease without esophagitis Additional A&P Information Acute kidney injury resolved On vancomycin and Zosyn On lotrimin/steroid cream We will see how he tolerates some REBEKA hose today We will give another dose of Diflucan Additional dose of IV Lasix but only 20 mg Keep lower extremity elevated >> emphasized with patient that he needs to keep it elevated at least portions of the day Sliding scale insulin if needed, I have started him on some metformin Diabetic diet education -asked his nurse to get him some reading information on this Not on aspirin or beta-blockade chronically but need to consider initiation Continue statin therapy Continue Flomax Continue chronic PPI Alicequis provides DVT treatment; DVT was present on admission Supportive care otherwise Plans discussed with patient and he was given an opportunity to ask questions I also called and updated his Full code Attestations Medical Necessity Statement*: Requires ongoing inpatient care to ensure continued improvement and tolerance of medications. Giving one more dose of IV diuresis and will see if can tolerate teds. Likely DC tomorrow Coding Level of Care Code Acute Engagement Mgr for Chg Fwd Diagnoses Cellulitis of right leg without foot L03.115 Lymphedema of right lower extremity I89.0 Failure of outpatient treatment Z78.9 Deep vein thrombosis (DVT) of right lower extremity I82.411 Affected thrombotic vein of extremity: femoral Chronicity: acute Hyperglycemia R73.9 CAD (coronary artery disease) I25.810 Coronary Disease-Associated Artery/Lesion type: bypass graft [place] vs. transplanted heart: [place] heart Associated angina: without angina Hypercholesteremia E78.00 Hypertension I10 Hypertension type: essential hypertension BPH (benign prostatic hyperplasia) N40.0 Lower urinary tract symptom presence: symptoms absent GERD (gastroesophageal reflux disease) K21.9 Esophagitis presence: esophagitis presence not specified
[2019-11-17] MEDS: FUROsemide 10 mg/mL SDV 2mL 20 MG IVP (14:19)
[2019-11-17] MEDS: fluconazole 100 mg Tablet 200 MG PO (14:20)
[2019-11-17 15:58] VITALS: BP 148/88; PULSE 60; RESP 18; TEMP 36.4; O2SAT 95
[2019-11-17 16:50] LABS: Glucose Point of Care 123 mg/dL (70-110)
[2019-11-17 19:16] VITALS: BP 138/74; PULSE 61; RESP 20; TEMP 36.6; O2SAT 96
[2019-11-17 21:07] LABS: Glucose Point of Care 120 mg/dL (70-110)
[2019-11-17] MEDS: acetaminophen 325 mg Tablet 650 MG PO (22:54)
[2019-11-18] VITALS: BP 108/72; PULSE 93; RESP 22; TEMP 37.2; O2SAT 97
[2019-11-18 01:43] VITALS: BP 121/73; PULSE 64; RESP 18; TEMP 36.7; O2SAT 97
[2019-11-18] MEDS: sodium chloride 0.9% 1,000 ML 75 ML IV (02:39)
[2019-11-18] MEDS: piperacillin-tazobactam 3.375 GM in sodium chloride 0.9% (plus) 50 ML IV ×2 (03:16→13:25)
[2019-11-18 04:00] VITALS: BP 127/76; PULSE 64; RESP 20; TEMP 36.4; O2SAT 95
[2019-11-18] MEDS: metformin 500 mg Tablet PO (06:02)
[2019-11-18 06:42] LABS: Glucose Point of Care 102 mg/dL (70-110)
[2019-11-18 08:00] VITALS: BP 161/87; PULSE 64; RESP 18; TEMP 36.4; O2SAT 97
[2019-11-18] MEDS: lactobacillus 1 Tablet 1 TAB PO (09:04)
[2019-11-18] MEDS: atorvastatin 40 mg Tablet 80 MG PO (09:04)
[2019-11-18] MEDS: tamsulosin 0.4 mg Capsule PO (09:04)
[2019-11-18] MEDS: fluconazole 100 mg Tablet 200 MG PO (09:04)
[2019-11-18] MEDS: apixaban 5 mg Tablet PO (09:05)
[2019-11-18] MEDS: triamcinolone 0.1% cream 15 gm 1 APPLIC TOPICAL (09:05)
[2019-11-18] MEDS: clotrimazole 1% cream 30 gm 1 APPLIC TOPICAL (09:05)
[2019-11-18] MEDS: pantoprazole DR 40 mg Tablet PO (09:05)
--- NOTE | 2019-11-18 11:26 | P.DS_ITS ---
Discharge Providers Date of Admission: 11/14/19 22:11 Date of Discharge: November 18, 2019 Attending Provider at Admission: Crista Mosquera MD Attending Provider at Discharge: Crista Mosquera MD Primary Care Provider: Anuradha Martell Diagnoses at Discharge Discharge Diagnosis (1) Cellulitis of right leg without foot: Status: Acute (2) Lymphedema of right lower extremity: Status: Acute (3) Failure of outpatient treatment: Status: Acute (4) Deep vein thrombosis (DVT) of right lower extremity: Status: Acute Qualifiers: Affected thrombotic vein of extremity: femoral Chronicity: acute Qualified Code(s): I82.411 - Acute embolism and thrombosis of right femoral vein (5) Anticoagulation adequate: Status: Acute Problem details: On Eliquis for DVT (6) Hyperglycemia: Status: Acute (7) Diabetes mellitus type 2, noninsulin dependent: Status: Acute (8) CAD (coronary artery disease): Status: Acute Qualifiers: Associated angina: without angina Coronary Disease-Associated Artery/Lesion type: bypass graft [place] vs. transplanted heart: [place] heart Qualified Code(s): I25.810 - Atherosclerosis of coronary artery bypass graft(s) without angina pectoris (9) Hypertension: Status: Acute Qualifiers: Hypertension type: essential hypertension Qualified Code(s): I10 - Essential (primary) hypertension (10) Hypercholesteremia: Status: Acute (11) GERD (gastroesophageal reflux disease): Status: Acute Qualifiers: Esophagitis presence: esophagitis presence not specified Qualified Code(s): K21.9 - Gastro-esophageal reflux disease without esophagitis (12) BPH (benign prostatic hyperplasia): Status: Acute Qualifiers: Lower urinary tract symptom presence: symptoms absent Qualified Code(s): N40.0 - Benign prostatic hyperplasia without lower urinary tract symptoms Reason for Visit Reason for Visit: R LEG SWELLING Hospital Course Hospital Course: Patient was admitted to a medical bed and started on broad- spectrum antibiotics. He had minimal improvement initially. Further evaluation of the areas of skin involvement showed what appeared to be 2 different types of rashes on top of what I suspect is lymphedema development secondary to the DVT. Patient is a known history of prior vein graft harvesting from the same leg. Proximal to the knee itself and involving the anterior portion of the knee there appears to be a fungal component to the cellulitis. Distal to that, patient had some skin trauma related to wearing his boots and I suspect that he had a secondary staph or strep infection. No findings were noted on blood cultures. He responded to a couple of doses of diuretics and elevation of the leg. Once the skin wounds started to heal, compression stockings were put on and he had even further improvement. Pain also improved where he was not hurting with walking. He continues to have edema compared to the left lower extremity but has improved range of motion at both the ankle and the knee. Capillary refill was brisk throughout the hospital stay despite the degree of edema. Recommend that he follow-up with wound care because the wounds were open and oozing so much initially. I still think that this would be in his best interest but the wounds improved remarkably after addition of compression stockings. He wants to go to the wound care clinic in [place] which is closer to him. I am not sure if they have a lymphedema clinic but that might also be beneficial. He is to continue the Eliquis for the DVT. Should he have increased swelling to the same degree, recommend reevaluation with additional venous Doppler and he may have to have an alternative anticoagulant. Given that the prior imaging from the [place] had demonstrated DVT down to the peroneal vein and now is only showing above the knee, did not make decision to change presently. It was considered. He will be discharged on Bactrim and Diflucan along with Chlortrimazole and steroid cream. I have ordered compression stockings for him to use in the outpatient setting. Venous and arterial Dopplers were done during the hospital stay with results as noted below. During the hospital stay was found to have a hemoglobin A1c of 6.5. He was treated with some insulin while here and metformin was started. Recommended initiation of a consistent carbohydrate diet and close follow-up with primary care provider. Relayed to him that uncontrolled blood sugars can contribute to development of infections like this. Echocardiogram was done during the hospital stay with results as noted below. With improved ability to get around and improved findings on physical exam, patient was felt stable for discharge home. He has a lot of desquamating skin distally. Most of the areas that have been previously open were starting to dry and scab over. One 1-1/2 cm x 2 mm area on the medial malleolus of the right lower extremity was still open but not draining on the day of discharge. More proximally on the knee, patient has some erythema with satellite lesions and one area of scaling circumferential skin just above the kneecap. His lungs were clear, he had no difficulty breathing and vital signs were stable. Plans were discussed with patient and his throughout the hospital stay. Both were given an opportunity to ask questions on the day of discharge. Discharge Data Data Completed and Pending: Completed Studies During Hospitalization Category Date Time [place] [id number] Rout ine Ultrasound 11/15/19 15:03 Completed CV echo limited 9 [id number] Routine Ultrasound 11/15/19 22:29 [place] [id number] Urgent Ultrasound 11/14/19 13:16 Completed Pending at discharge Category Date Time Status Blood Culture Sta t Lab 11/14/19 13:25 Results Blood culture results were no growth x4 days at the time of discharge Labs from last 24 hours 11/18/19 11/17/19 11/17/19 06:35 20:59 16:43 POC Glucose 102 120 123 Vancomycin Trough 11/17/19 11/17/19 12:07 11:42 POC Glucose 140 Vancomycin Trough 13.0 Imaging^: Echo: Radiologist's impression: CONCLUSIONS This is a limited study to include 2-dimensional views only. No M-mode or Doppler examination done.normal left ventricular cavity size. Normal left ventricular wall thickness. Normal left ventricular systolic function. There may be slight hypokinesis of the mid anterior wall in only 1 view the parasternal long axis view. This is not reproduced in other views. The overall ejection fraction is within normal limits and is approximately 55 to 60%. Mildly increased left atrial size. US Vascular: Radiologist's impression: Arterial RIGHT LEFT BP: 135.0 / 71.00 BP: 125.0/ 75.00 0 0 Waveform Velocity (cm/s) Velocity (cm/s) Waveform Triphasic 112.0 Iliac Prox Triphasic 101.3 Iliac Mid Triphasic 141.3 Iliac Distal Triphasic 86.8 BROADBAND INSTALLER Triphasic 95.4 SFA Prox Triphasic 113.1 SFA Mid Triphasic 103.9 SFA Dist Triphasic 92.0 POP Triphasic 71.0 TEST LEAD APPLICATION TESTING Triphasic 66.8 DPA 1.5 PHIL FINDINGS Supernormal resting PHIL on the right side CONCLUSIONS No significant arterial obstruction on the right side US: Radiologist's impression: Venous PROCEDURES: Venous duplex imaging was performed in only the right lower extremity. The following venous structures were evaluated: common femoral vein, profunda vein, proximal portion of the greater saphenous vein, superficial femoral vein, and the popliteal vein. In addition, the posterior tibial and peroneal trunk were evaluated. Serial compression, augmentation maneuvers, and spectral Doppler flow evaluation were performed. FINDINGS: Acute thrombus within the CFV, Profunda, and Femoral vein. Normal popliteal vein. CONCLUSIONS There is evidence of acute right lower extremity deep venous thrombosis. Addt'l Data from Hospital Stay: Laboratory Tests 11/14/19 11/14/19 11/15/19 13:30 13:30 04:33 WBC 6.1 Hgb 14.0 Hct 41.5 L Plt Count 200 BUN Creatinine GFR Calculation Hemoglobin A1c Lactate 1.7 Magnesium Total Bilirubin 0.3 AST 22 ALT 17 Alkaline Phosphata se 85 C-Reactive Protein NT-Pro-B Natriuret Pep Albumin 4.2 11/15/19 11/15/19 11/16/19 04:33 04:33 04:45 WBC Hgb Hct Plt Count BUN Creatinine GFR Calculation Hemoglobin A1c 6.5 H Lactate Magnesium Total Bilirubin AST ALT Alkaline Phosphata se C-Reactive Protein 7.7 H NT-Pro-B Natriuret Pep 533 H Albumin 11/17/19 07:50 WBC Hgb Hct Plt Count BUN 15 Creatinine 1.2 GFR Calculation 59.9 L Hemoglobin A1c Lactate Magnesium 2.0 Total Bilirubin AST ALT Alkaline Phosphata se C-Reactive Protein NT-Pro-B Natriuret Pep Albumin Vitals: Last Vital Signs Temp 97.6 F 11/18/19 08:00 Pulse 64 11/18/19 08:00 Resp 18 11/18/19 08:00 BP 161/87 11/18/19 08:00 Pulse Ox 97 11/18/19 08:00 Discharge Plan Discharge Patient Disposition: Home, Self-Care Condition: Stable Prescriptions: New sulfamethoxazole-trimethoprim [Bactrim DS] 800-160 mg tablet 1 tab PO BID 7 Days Qty: 14 RF: 0 Lactobacillus acidoph-L.bulgar [Floranex] 1 million cell Tablet 1 tab PO BID Qty: 60 RF: 0 metformin 500 mg Tablet 500 mg PO ACBREAKFAST Qty: 30 RF: 0 clotrimazole-betamethasone 1-0.05 % cream 1 applic TOPICAL BID 14 Days Qty: 45 RF: 0 acetaminophen 325 mg capsule 650 mg PO Q6H PRN (Reason: Pain) Qty: 100 RF: 0 fluconazole [Diflucan] 200 mg tablet 200 mg PO DAILY Qty: 5 RF: 0 Continued tamsulosin 0.4 mg capsule 0.4 mg PO DAILY RF: 0 omeprazole 20 mg capsule,delayed release(DR/EC) 20 mg PO BID RF: 0 Crestor 20 mg Tablet 20 mg PO DAILY RF: 0 Eliquis 5 mg tablet 5 mg PO BID RF: 0 Discontinued ceftriaxone 1 gram recon soln 1 g IV DAILY RF: 0 doxycycline hyclate 100 mg tablet 100 mg PO BID RF: 0 Discharge Orders: Discharge Order (Routine); Ordered 11/18/19 Ordered By: Crista Mosquera Other Ambulatory Orders: DME: Miscellaneous (Order) Location: None Selected Ordered By: Crista Mosquera Referrals: Carrie Alston [Other] - 1 week (Lymphedema felt secondary to DVT diagnoses in last few months, history of vein grafting, loss of superficial skin in areas where boot abraded skin, improving but needs close monitoring, A1c 6.5 (new), [facility], Arterial doppler without obstruciton.) COLEMAN II,FLETCHER Blankenship DO [Family Provider] - 1 week Discharge Diet: Diabetic Discharge Activity: Limit activity as instructed Patient Instructions: Diabetes and Diet, Sulfamethoxazole/Trimethoprim (By mouth), Fluconazole (By mouth), Metformin (By mouth), How to Check Your Blood Sugar (DC), Deep Venous Thrombosis (DC), Diabetes Mellitus Type 2 in Adults (DC), Lymphedema (DC), REBEKA Hose (DC) Activity Restrictions/Additional Instructions: You presented with clinical findings of cellulitis to the right lower extremity. You have a known history of DVT being treated with Eliquis. Ultrasound here revealed that the DVT includes the common femoral vein, femoral vein and profunda. [facility] D[facility] extended from the common femoral vein to the peroneal vein. Clinically it appears you have developed some lymphedema secondary to the DVT. This is the leg in which you have had previous vein graft removal. On top of the lymphedema, he developed a secondary infection related to your boots rubbing up against the swollen skin. This particular infection was felt to be bacterial in nature. This responded to IV antibiotics administered in the hospital, along with some clotrimazole and triamcinolone cream. After the superficial wounds started to heal, compression stockings were placed with even more improvement. You are having some desquamation of the skin which is not uncommon after an event like this. Do not pull the skin off yourself as you may reintroduce injury. In addition to the skin findings, you had a different type of rash more proximally, above the knee that appeared to be fungal in nature. Diflucan was added to your antibiotic regimen. The clotrimazole cream also impacted this. You received a couple of doses of IV diuresis while you were here. You need to keep your leg elevated. We are working on getting you follow-up in the wound care clinic at the [facility] in [place]. You are being discharged on an antibiotic called Bactrim to take twice a day for a week and 3 more days of the Diflucan. Additionally I have prescribed a cream to use twice a day. It will take some time for this to heal and the swelling may never completely go down. Should you have recurrent increased swelling in the leg, you will need repeat ultrasound and possibly consideration for change of anticoagulant therapy. This was not considered this hospital stay as it appeared you had had clinical improvement from original ultrasound. At the time of discharge, erythema extends from about 5 inches above the knee with associated satellite lesions to the distal ankle. To about the tibial plateau is the involvement that seemed more fungal in nature. Below that the skin is more consistent with lymphedema with superinfection. Nearly all wounds had dried up and were starting to scale off. Only 1 that was still a little bit open was on the medial aspect of the ankle below the medial malleolus. It was not actively oozing at the time of discharge. You had significant decrease in edema and increased range of motion of the ankle. One thing that was discovered during this hospital stay is that your hemoglobin A1c is 6.5. This is consistent with at least prediabetes/gluclose intolerance if not diabetes type 2. This is a risk factor for developing the types of skin infections that you demonstrated. I have started you on some metformin. You wi ll need follow-up with your primary care provider to further manage this. Strongly encourage a consistent carbohydrate diet to facilitate management. Discharge Attestations Time Spent in Discharge Care*: greater than 30 min Specific Discharge Activities: Specific discharge activities: educating patient, educating and/or supporting family/caregiver, discussing with pillowcase turner/social workers/dc planners, documenting/other paperwork and evaluating patient/reviewing data Quality Metrics Clinical Quality Measures During this hospital stay, did patient experience: None Coding Level of Care Code Acute Asphalt Paving Superintendent for Chg Fwd Diagnoses Cellulitis of right leg without foot L03.115 Lymphedema of right lower extremity I89.0 Failure of outpatient treatment Z78.9 Deep vein thrombosis (DVT) of right lower extremity I82.411 Affected thrombotic vein of extremity: femoral Chronicity: acute Anticoagulation adequate Z79.01 Hyperglycemia R73.9 Diabetes mellitus type 2, noninsulin dependent E11.9 CAD (coronary artery disease) I25.810 Associated angina: without angina Coronary Disease-Associated Artery/Lesion type: bypass graft [place] vs. transplanted heart: [place] heart Hypertension I10 Hypertension type: essential hypertension Hypercholesteremia E78.00 GERD (gastroesophageal reflux disease) K21.9 Esophagitis presence: esophagitis presence not specified BPH (benign prostatic hyperplasia) N40.0 Lower urinary tract symptom presence: symptoms absent
[2019-11-18 11:58] LABS: Glucose Point of Care 108 mg/dL (70-110)
[2019-11-18 12:00] VITALS: BP 161/87; PULSE 64; RESP 18; TEMP 36.4; O2SAT 97
[2019-11-18 14:57] VITALS: BP 144/85; PULSE 88; RESP 18; TEMP 36.1; O2SAT 99
--- NOTE | 2019-11-21 11:56 | PC.SOCIAL ---
Called [facility] to verify information of provider Dr. Quang Martell in order to fax over discharge information/medical records, and was told by [facility] 's fertilizing machine operator that [facility]. Patient also has a PCP, Anuradha Martell whom I faxed over information to, but also called [facility] to verify [facility] was taking care of patient, and was told by fertilizing machine operator that patient switched from cobalt team to green team, and now he is seeing Johnnie Ott APN and obtained fax number of [phone] for this provider. KW
== END 2019-11-18 14:58 | disposition home or self-care (01) | DRG 603 ==
LOC: ER 15:15 → MEDSURG 15:30
PROVIDERS: Emergency Medicine; Physician Assistant; Admitting Provider Hospitalist; PCP Nurse Practitioner Family; Visit Provider Hospitalist
DX: L03.115 Cellulitis of right lower limb (principal); I82.5Z1 Chronic embolism and thrombosis of unspecified deep veins of right distal lower extremity; I82.411 Acute embolism and thrombosis of right femoral vein; I25.810 Atherosclerosis of coronary artery bypass graft(s) without angina pectoris; I10 Essential (primary) hypertension; E78.00 Pure hypercholesterolemia, unspecified; K21.9 Gastro-esophageal reflux disease without esophagitis; N40.0 Benign prostatic hyperplasia without lower urinary tract symptoms; I89.0 Lymphedema, not elsewhere classified; E11.65 Type 2 diabetes mellitus with hyperglycemia; Z87.891 Personal history of nicotine dependence
CPT/HCPCS: 12345; 36415; 36416; 80048; 80053; 80202; 81003; 82962; 83036; 83605; 83735; 83880; 84100; 85025; 85610; 85730; 86140; 87040; 93308; 93926; 93971; 96372; 96375; 99282; G0378; J1815; J1940; J2543; J3370; J7030; J7050

== ENCOUNTER 2019-12-07 13:14 | Outpatient (CLI) | payer OTHER, SELFPAY | END 2019-12-07 13:15 | disposition home or self-care (01) | LOC: WOUND 13:15 | PROVIDERS: Family Provider Family Medicine; PCP Nurse Practitioner Family; Visit Provider Thoracic Surgery (Cardiothoracic Vascular Surgery) | DX: R60.9 Edema, unspecified (principal); M79.89 Other specified soft tissue disorders | CPT/HCPCS: G0463 ==

== ENCOUNTER 2019-12-14 13:05 | Outpatient (CLI) | payer OTHER, SELFPAY | END 2019-12-14 13:06 | disposition home or self-care (01) | LOC: WOUND 13:05 | PROVIDERS: Family Provider Family Medicine; PCP Nurse Practitioner Family; Visit Provider Thoracic Surgery (Cardiothoracic Vascular Surgery) | DX: R60.9 Edema, unspecified (principal) | CPT/HCPCS: 99212 ==

== ENCOUNTER 2023-02-27 08:29 | Outpatient (CLI) | payer OTHER, SELFPAY ==
[2023-02-27 09:02] LABS: Add Urine Microscopic? NO; Charge for UA Resulting for Rev
[2023-02-27 09:18] LABS: Glucose Urine UA Norm (Normal); Protein Urine Neg (Negative); Specific Gravity, Urine 1.015 (1.005-1.030); Urine Appearance Clear (CLEAR); Urine Color Yellow (Yellow); pH Urine 6 (5-7)
[2023-02-27 09:19] LABS: Bilirubin Urine Neg (Negative); Blood Urine Neg (Negative); Ketones Urine Negative (Negative); Leukocyte Esterase Urine Negative (Negative); Nitrate Urine Negative (Negative); Urobilinogen Urine Norm (Negative)
[2023-02-27 09:24] LABS: Alanine Aminotransferase 18 U/L (0-41); Albumin Level 4.3 g/dL (3.5-5.2); Alkaline Phosphatase 58 U/L (40-130); Anion Gap 12.4 (5-19); Aspartate Amino Transferase 23 U/L (0-40); Blood Urea Nitrogen 18 mg/dL (8-23); Calcium 8.8 mg/dL (8.5-10.5); Carbon Dioxide 25 mmol/L (22-29); Chloride 104 mmol/L (98-107); Globulin 2.5 g/dL (1.3-4.6); Glucose 129 mg/dL (65-115); Osmolality Calculated 288 mOsm/kg (285-295); Potassium 4.4 mmol/L (3.5-5.1); Sodium 137 mmol/L (136-145); Total Bilirubin 0.5 mg/dL (0.15-1.2); Total Protein 6.8 g/dL (6.6-8.7)
== END 2023-02-27 08:30 | disposition home or self-care (01) ==
PROVIDERS: PCP Chiropractor; Visit Provider Chiropractor
DX: E11.9 Type 2 diabetes mellitus without complications (principal)
CPT/HCPCS: 36415; 80053; 81003